=== PATIENT | male | born 1950 | race Caucasian/White ===

== ENCOUNTER 2018-11-27 06:44 | Day surgery (SDC) | payer MEDICARE ==
[2018-11-24 11:03] VITALS: BMI 21.7
--- NOTE | 2018-11-26 21:23 | HP ---
HISTORY OF PRESENT ILLNESS: Mr. Carey is known to us for distant hospital evaluation of subdural hematoma who returns today with severe axial neck pain with some radiation to the upper intrascapular region. This is in the setting of a CT from [facility] that reveals areas of moderate foraminal stenosis at the upper cervical spine as well as rather significant facet arthrosis as well. The symptoms could potentially be explained by either of these or likely a combination of two. He has treated this conservatively with injections, medications, which did help initially but hopes to discuss surgery at this time. REVIEW OF SYSTEMS: Denies joint pain or arm pain. Denies numbness or tingling. Reports neck pain. MEDICAL HISTORY: Significant for chronic pain, neuropathy, hypertension, hypothyroidism, COPD, coronary arterial disease, diabetes, rheumatoid arthritis. ALLERGIES: TO PENICILLIN, CIPRO, DEMEROL, BACTRIM, LEVAQUIN, AND FLAGYL. CURRENT MEDICATIONS: 1. Valtrex. 2. Topiramate. 3. Crestor. 4. Plaquenil. 5. Januvia. 6. Janumet. 7. Eliquis. 8. Singulair. 9. Levothyroxine. 10. Metoprolol. 11. Lasix. 12. Gabapentin. 13. Hydromorphone. 14. Baclofen. PAST SURGICAL HISTORY: None listed. PHYSICAL EXAMINATION: The patient is alert and oriented x3. Gait is slowed and antalgic with stooped posture. Upper extremity motor exam is normal. He has severe restriction in his cervical range of motion secondary to pain. ASSESSMENT: Cervical radiculopathy. PLAN: Dr. Villa met with the patient, reviewed imaging and advocated for foraminotomies. He explained to the patient the risks, benefits, and alternatives of the procedure. The patient expressed understanding and elected to move forward with surgery as discussed. I do believe the patient is mentally competent and capable of making medical decisions for himself. We will move forward with surgery as planned. Job ID: [id number]
[2018-11-27 07:45] LABS: Hemoglobin 13.5 g/dL (14.0-18.0); Mean Corpuscular HGB CONC 33.7 g/dL (32.0-36.0); Mean Corpuscular Hemoglobin 33.1 pg (27.0-31.0); Mean Platelet Volume 7.2 fL (7.4-10.4); Platelet Count 260 thou/uL (130-400); White Blood Cell (WBC) Count 6.7 thou/uL (4.8-10.8)
[2018-11-27 08:04] LABS: Anion Gap 12 mmol/L (10-20); BUN (Urea Nitrogen) 24 mg/dL (8.4-25.7); Calc. Creatinine Clearance 58 mL/min (70-130); Calcium 9.9 mg/dL (7.8-10.44); Carbon Dioxide 30 mmol/L (23-31); Chloride 100 mmol/L (98-107); Estimated GFR-MDRD 68; Glucose 101 mg/dL (80-115); Potassium 3.6 mmol/L (3.5-5.1); Sodium 138 mmol/L (136-145)
[2018-11-27] MEDS ORDERED: Clindamycin/D5W 900 mg/50 ml Premix Bag ONE (08:36)
[2018-11-27] MEDS ORDERED: Thrombin 5000 UNITS/5 ML VIAL ONE (08:43)
[2018-11-27] MEDS ORDERED: Bupivacaine HCl 0.5%/Epinephrine 1:200,000/PF 30 ml Vial ONE (08:43)
[2018-11-27] MEDS ORDERED: Fentanyl 100 MCG/2 ML VIAL ONE ×2 (09:05→11:25)
[2018-11-27] MEDS ORDERED: SUGAMMADEX SODIUM 200 MG/2 ML VIAL ONE (10:26)
[2018-11-27] MEDS ORDERED: Morphine Sulfate 2 MG/ML SYRINGE SLOW IVP PRN (10:46)
[2018-11-27] MEDS ORDERED: PACU-Morphine 4MG/ML VIAL SLOW IVP PRN (10:46)
[2018-11-27] MEDS ORDERED: Promethazine HCl 25 MG/ML VIAL IM PRN (10:46)
[2018-11-27] MEDS ORDERED: Ondansetron HCl/PF 4 MG/2 ML Vial IVP PRN (10:46)
[2018-11-27] MEDS ORDERED: Promethazine HCl 25 MG/ML VIAL SLOW IVP PRN (10:46)
[2018-11-27] MEDS ORDERED: HYDROmorphone 2 MG/ML VIAL SLOW IVP PRN (10:46)
[2018-11-27] MEDS ORDERED: Tamsulosin HCl 0.4 MG CAP ONE (11:40)
--- NOTE | 2018-11-27 12:13 | OP ---
DATE OF PROCEDURE: 11/27/2018 HE[employer] TRE[employer] HELPER: Akin Taylor PA-C DIAGNOSIS: Cervical radiculopathy. PROCEDURES PERFORMED: Bilateral C3-C4 foraminotomy. ANESTHESIA: General. DESCRIPTION OF PROCEDURE: The patient was brought into the operating room and placed under general anesthesia. He was carefully flipped from the supine to prone position on operating room table. A linear incision was planned over the C3-C4 segment. After prepping and draping and after an appropriate preoperative pause, the incisions were created. The soft tissues were swept away from midline. A small high-speed cutting drill bit as well as 2 and 1 mm Kerrisons were used to perform foraminotomies over the exiting C4 nerve roots. After decompressing the nerve roots, the wound was irrigated. Hemostasis was maintained throughout. The wound was then closed in anatomic layers and a pressure dressing was applied. There were no known procedural complications. Job ID: [id number]
[2018-11-27] MEDS ORDERED: Morphine 4 MG/ML VIAL ONE (12:32)
[2018-11-27] MEDS ORDERED: Gabapentin 300 MG CAP ONE (12:40)
[2018-11-27] MEDS ORDERED: Acetaminophen/Codeine 30-300mg Tablet ONE (13:37)
[2018-11-27] MEDS ORDERED: Ondansetron PF 4 MG/2 ML Vial ONE (16:52)
[2018-11-27] MEDS ORDERED: PROPOFOL 200 MG/20 ML VIAL ONE (16:52)
[2018-11-27] MEDS ORDERED: PHENYLEPHRINE-NS 100 MCG/ML 10 ML SYRINGE ONE (16:52)
[2018-11-27] MEDS ORDERED: Glycopyrrolate 0.2 MG/ML 5 ML SYRINGE ONE (16:52)
[2018-11-27] MEDS ORDERED: Dexamethasone 20 MG/5 ML VIAL ONE (16:52)
[2018-11-27] MEDS ORDERED: Rocuronium Bromide 10 MG/ML (10ML VIAL) ONE (16:52)
[2018-11-27] MEDS ORDERED: Lidocaine 1% PF 5 ML VIAL ONE (16:52)
--- NOTE | 2018-11-29 16:39 | EKG ---
Test Reason : PREOP Blood Pressure : / mmHG Vent. Rate : 064 BPM Atrial Rate : 064 BPM P-R Int : 170 ms QRS Dur : 096 ms QT Int : 436 ms P-R-T Axes : 020 035 052 degrees QTc Int : 449 ms Sinus rhythm with frequent Premature ventricular complexes Otherwise normal ECG No previous ECGs available Confirmed by DR. Ravi NICHOLE ([id number]) on 11/29/2018 4:39:24 PM Referred By: [email or web address] Confirmed By:DR. Ravi NICHOLE
== END 2018-11-27 14:30 | disposition home or self-care (01) ==
LOC: SDC 06:44
PROVIDERS: ATTEND Neurological Surgery
PROC: 00NW0ZZ Release Cervical Spinal Cord, Open Approach (ICD-10-PCS; principal; 2018-11-27)
DX: M54.12 Radiculopathy, cervical region (principal); I10 Essential (primary) hypertension; E11.9 Type 2 diabetes mellitus without complications; E03.9 Hypothyroidism, unspecified; J44.9 Chronic obstructive pulmonary disease, unspecified; I25.10 Atherosclerotic heart disease of native coronary artery without angina pectoris; M06.9 Rheumatoid arthritis, unspecified; Z88.0 Allergy status to penicillin; Z88.1 Allergy status to other antibiotic agents; Z88.2 Allergy status to sulfonamides; Z88.5 Allergy status to narcotic agent; Z79.899 Other long term (current) drug therapy; Z79.01 Long term (current) use of anticoagulants; Z79.84 Long term (current) use of oral hypoglycemic drugs
CPT/HCPCS: 36415; 76000; 80048; 85027; 93005; 93010; J0131; J0670; J1100; J2001; J2270; J2405; J2704; J3010; J3490